=== PATIENT | male | born 2005 | race Caucasian/White ===

== ENCOUNTER 2024-10-20 22:54 | Emergency (ER) | payer SELFPAY ==
[2024-10-20 23:07] VITALS: BP 130/80
[2024-10-21 00:11] VITALS: BP 136/71
[2024-10-21 00:12] VITALS: BMI 26.8
[2024-10-21 00:50] LABS: Hematocrit 38.3 % (39.0-52.0); Hemoglobin 13.3 g/dL (13.0-18.0); Mean Corp Hgb Conc. 34.7 g/dL (33.0-37.0); Mean Corpuscular Volume 86.1 fL (80.0-94.0); Nucleated Red Blood Cells % 0 % (-); Platelet Count 204 10^3/uL (130-400); Red Cell Dist. Width 12.5 % (11.5-14.5)
[2024-10-21 01:00] VITALS: BP 122/76
[2024-10-21 01:02] LABS: ALT (SGPT) 43 U/L (0-50); AST (SGOT) 33 U/L (17-59); Albumin 4.9 g/dl (3.5-5.0); Alkaline Phosphatase 88 U/L (38-126); Blood Urea Nitrogen 21 mg/dl (9-20); Calcium 10.1 mg/dl (8.4-10.2); Carbon Dioxide 21 mmol/L (22-30); Chloride 107 mmol/L (98-107); Estimated Creatinine Clearance 97 ml/min; Glucose 100 mg/dl (70-99); Potassium 4.3 mmol/L (3.5-5.1); Sodium 139 mmol/L (135-145); Total Protein 7.5 g/dl (6.3-8.2); eGFR > 60.00
[2024-10-21 01:13] LABS: Troponin I < 0.012 ng/ml
--- NOTE | 2024-10-21 01:15 | ED.GENMED ---
History of Present Illness
General
Chief Complaint: Chest Pain
Time Seen by Provider: 10/21/24 00:04
History of Present Illness
History of Present Illness:
19-year-old male without significant past medical history presenting to the emergency department for chest discomfort. Patient reports symptoms are several hours prior to arrival. Patient notes that he got home from work, felt very exhausted. He
laid on the ground and started to feel discomfort in his chest. Symptoms persisted which prompted him to come to the ER. Denies any personal history of cardiac disease, notes and family history. Denies difficulty breathing. Pain is worse with
deep inspiration. 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 Denies fever. He has not tried any medications for pain. Denies additional acute medical complaints
Past History
Social History
Tobacco: Non-smoker
Phy Exam
Physical Exam
Physical Exam:
General: Well-appearing, no clinical signs of dehydration, nontoxic and in no acute distress
HEENT: protecting airway
Neck: appears supple
CV: Normal heart rate, regular rhythm
Resp: No accessory muscle use, no increased work of breathing, lungs clear to auscultation bilaterally
Abd: No distention
Extremities: No deformities, no swelling
Neuro: alert, no focal neurologic deficit
: deferred
Rectal: deferred
Psych: Normal affect
Skin: Intact
Scores
Heart Score for Chest Pain Patients
STEMI patient?: No
History: Slightly or Non-Suspicious
ECG: Normal
Age: </= 45 years
Risk Factors: No Risk Factors
Troponin: </= Normal Limit
Heart Score for Chest Pain Patients: 0
Heart Score Risk: 2.5% MACE over next 6 weeks
Course
Orders/Labs/Results
Orders:
Orders
10/20/24 23:13
Electrocardiogram (*1) Urgent
Reason for Study: Other
Other Reason for Exam: Respiratory Distress
Cardiac Monitoring- Treatment ONCE
EKG- Treatment ONCE
IV Insert/Care/Rem.- Treatment PRN
Complete Blood Count/With Diff Urgent
Comprehensive Metabolic Panel Urgent
NT-proBNP Urgent
Troponin I Urgent
O2 Therapy [RESP] Urgent
Titrate/Wean O2 to maintain O2 sat greater than (%): 93
Special Instructions: TO MAINTAIN CONTINUOUS O2 SATS >/= 93%
Pulse Ox/cont/shift [RESP] Urgent
Quantity: 1
Special Instructions: continuous pulse ox
10/21/24 00:00
CR Chest - 2 Views Urgent
Reason For Exam: respiratory distress
10/21/24 01:16
Ketorolac [Toradol] 15 mg IV NOW STA
Abnormal Lab Results
10/21/24
00:30
RBC 4.45 L 10^6/uL
(4.70-6.10)
Hct 38.3 L %
(39.0-52.0)
Abs Immat Gran (auto) 0.1 H 10^3/uL
(0-0.05)
Absolute Neuts (auto) 7.7 H 10^3/uL
(1.4-6.5)
Absolute Monos (auto) 1.1 H 10^3/uL
(0.1-0.6)
Immature Gran % 1.0 H %
(0-0.5)
Lymphocytes % 13.2 L %
(20.5-51.1)
Monocytes % 10.7 H %
(1.7-9.3)
Carbon Dioxide 21 L mmol/L
(22-30)
BUN 21 H mg/dl
(9-20)
Glucose 100 H mg/dl
(70-99)
10/21/24 00:30
10/21/24 00:30
Vital Signs
Initial and Last Documented VS:
Initial Vital Signs
Temp Pulse Resp BP Pulse Ox
98.7 F 97 20 130/80 97
10/20/24 23:07 10/20/24 23:07 10/20/24 23:07 10/20/24 23:07 10/20/24 23:07
Last Documented Vital Signs
Temp Pulse Resp BP Pulse Ox
98.7 F 69 19 123/70 96
10/20/24 23:07 10/21/24 01:49 10/21/24 01:49 10/21/24 02:00 10/21/24 02:15
MDM/Problems Addressed
MDM/Problems Addressed:
19-year-old male presenting to the emergency department with chest wall pain. Vital signs are normal.
On exam patient resting comfortably, no acute distress. EKG obtained on arrival, nonischemic. Mild tenderness to the chest wall with overlying suspicion for musculoskeletal strain. Notes that he was doing a lot of manual labor today. Denies any
direct injury to the chest wall. Without present concern for ACS. No PE risk factors. Lower suspicion for pneumothorax. Plan for laboratory analysis and chest x-ray imaging. Toradol administered for pain.
02:00- Patient's labs are unremarkable. Chest x-ray shows appropriate expansion of the lungs. Continue to suspect musculoskeletal quality to patient's symptoms. Feel stable for discharge with outpatient supportive therapy. Return precautions
discussed and patient verbalized understanding
*Pulse Oximetry
SaO2: 97
Oxygen Mode of Delivery: Room air
Patient hypoxic: no
*EKG
Interpreted by ED Provider?: Yes
EKG Intrepretation Date: 10/21/24
EKG Intrepretation Time: 01:18
Interpretation: normal
Heart Rate: 88
Rate: normal
Rhythm: sinus
[place]: normal axis
Interval: normal interval
QRS Pattern: normal QRS
Ischemia: no ischemia
*Critical Care Note
Total Time (30-74mins, 75-104mins- exclusive of procedures): Not Applicable
ED Attending Note
-
Portions of this chart may have been created with voice recognition software.� Occasional wrong word or��sound alike� substitutions may have occurred due to the inherent limitations of voice recognition software.
Discharge Plan
Departure
Patient Disposition: Home (Routine Discharge)
Date of Disposition: 10/21/24
Time of Disposition: 02:09
Patient with high blood pressure during this ER visit?: No
Condition: Good
Discharge Problem:
Chest wall pain
Instructions: Chest pain (DC)
Prescriptions:
No Action
No Current Medications
0
Activity Restrictions/Additional Instructions:
You were seen in the emergency department for chest pain
You were found to have reassuring EKG laboratory analysis as well as chest x-ray imaging
Please follow-up closely with your primary care physician.
Return to the emergency department for any worsening of your symptoms, or any development of chest pain, difficulty breathing, abdominal pain with persistent vomiting and inability to tolerate food or liquid by mouth (concern for dehydration),
weakness, headache or confusion, fever greater than 100.4, or any additional symptoms that are concerning to you.
Thank you for choosing [facility].
Interventions
Interventions:
*Risk Screen - Suicide Last Done: 10/20/24 23:12
*General Assessment Last Done: 10/20/24 23:07
*Neglect/Abuse Screening Last Done: 10/20/24 23:07
*ED- Fall Risk Assessment Last Done: 10/20/24 23:07
*ED COVID-19 Vaccine History Last Done: 10/20/24 23:07
*Nursing Disposition Last Done: 10/21/24 02:15
ED- Cardiac Assessment Last Done: 10/21/24 00:05
Discharge Date and Time
Discharge Date/Time: 10/21/24 02:15
Print Language: KENYAN
[2024-10-21] MEDS: TORADOL 15 MG IV (01:24)
[2024-10-21 02:00] VITALS: BP 123/70
== END 2024-10-21 02:15 | disposition home or self-care (01) ==
LOC: EMR 22:54
PROVIDERS: EMERGENCY PHYSICIAN Student in an Organized Health Care Education/Training Program
DX: R07.89 Other chest pain (principal)
CPT/HCPCS: 99285; 96374; 71046; 80053; 83880; 84484; 85025; 93005